=== PATIENT | female | born 1955 | race Caucasian/White ===

== ENCOUNTER → 2016-10-25 | Outpatient (CLI) | payer OTHER | LOC: BRMIMAGING 09:38 | PROVIDERS: ATTEND Family Medicine | DX: M25.551 Pain in right hip (principal); M25.851 Other specified joint disorders, right hip; M25.852 Other specified joint disorders, left hip; M85.89 Other specified disorders of bone density and structure, multiple sites | CPT/HCPCS: 73502-PO ==